=== PATIENT | male | born 2000 | race African-American/Black ===

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

== ENCOUNTER 2021-03-14 16:29 | Emergency (ER) | payer BC ==
[2021-03-14] MEDS ORDERED: metroNIDAZOLE 250 MG TAB ONE (17:05)
[2021-03-14] MEDS ORDERED: Fluconazole 100 MG TAB ONE (17:06)
== END 2021-03-14 17:10 | disposition home or self-care (01) ==
LOC: BURERS 16:29
DX: B36.0 Pityriasis versicolor (principal)
CPT/HCPCS: 99282

== ENCOUNTER 2021-06-01 16:43 | Emergency (ER) | payer BC | END 2021-06-01 17:17 | disposition home or self-care (01) | LOC: BURERS 16:43 | DX: G43.909 Migraine, unspecified, not intractable, without status migrainosus (principal); R11.2 Nausea with vomiting, unspecified; F17.290 Nicotine dependence, other tobacco product, uncomplicated | CPT/HCPCS: 99283 ==

== ENCOUNTER 2021-12-15 11:41 | Emergency (ER) | payer BC, SELFPAY ==
[2021-12-15] MEDS ORDERED: Ibuprofen 800 MG TAB ONE (12:11)
== END 2021-12-15 12:14 | disposition home or self-care (01) ==
LOC: BURERS 11:41
DX: S29.012A Strain of muscle and tendon of back wall of thorax, initial encounter (principal); X50.0XXA Overexertion from strenuous movement or load, initial encounter
CPT/HCPCS: 99283